=== PATIENT | male | born 1975 | race Caucasian/White ===

== ENCOUNTER 2022-01-17 16:38 | Emergency (ER) | payer OTHER ==
[~2022-01-17 16:38] MED LIST: ANORO; ANORO ELLIPTA1 EACH INH; ASPIRIN EC81 MG PO; BREO ELLIPTA 11 EACH INH; BUSPIRONE HCL15 MG PO; CIPRO500 MG PO; DILAUDID2 M1 PO; FLOMAX 0.4 MG0.4 MG PO; FLOVENT HF120 PUFFS/ INH; LIPITOR20 MG PO; NEURONTIN400 MG PO; PROZAC20 MG PO; ROBITUSSIN W/COD5 ML PO; SUBOXONE 8 MG-1 EACH PO; TOPROL XL25 MG PO; ZOFRAN4 MG PO; ZOFRAN8 MG PO; seroquel PO
== END 2022-01-17 19:38 | disposition home or self-care (01) ==
LOC: FER 16:38
DX: S86.911A Strain of unspecified muscle(s) and tendon(s) at lower leg level, right leg, initial encounter (principal); I10 Essential (primary) hypertension; X50.1XXA Overexertion from prolonged static or awkward postures, initial encounter; Y93.89 Activity, other specified; Y92.009 Unspecified place in unspecified non-institutional (private) residence as the place of occurrence of the external cause
CPT/HCPCS: 73560